=== PATIENT | male | born 1950 | race Caucasian/White ===

== ENCOUNTER 2022-10-02 09:46 | Day surgery (SDC) | payer MEDICARE ==
[2022-10-02] MEDS ORDERED: LIDOCAINE HCL 2% 100 MG/5 ML IJ ONE (09:47)
[2022-10-02] MEDS ORDERED: DIPRIVAN 200 MG/20 ML IV ONE (11:38)
--- NOTE | 2022-10-02 13:43 | XRAY ---
Indication: Bilateral L4-S1 MBB. Intraoperative fluoroscopy provided for 12 seconds. Single digital spot image submitted for interpretation demonstrates posterior needle tips projecting over the expected left and right L4-S1 nerve roots. Correlate with intraoperative findings/report.
[2022-10-02] MEDS ORDERED: Lactated Ringers 1,000 ML IV ONE (14:24)
--- NOTE | 2022-10-02 14:46 | XRAY ---
12 seconds of fluoroscopy was used in surgery for a bilateral L4-S1 MBB.
== END 2022-10-02 12:10 | disposition home or self-care (01) ==
LOC: SDC-PAIN 09:46
PROVIDERS: ATTEND Psychiatry & Neurology Pain Medicine
DX: M47.816 Spondylosis without myelopathy or radiculopathy, lumbar region (principal); I48.91 Unspecified atrial fibrillation; Z79.899 Other long term (current) drug therapy
CPT/HCPCS: 64493; 64494; 72020; 77002; J2704

== ENCOUNTER 2022-11-06 13:25 | Day surgery (SDC) | payer MEDICARE ==
[2022-11-06] MEDS ORDERED: BUPIVACAINE 0.5% VIAL IJ ONE (13:26)
[2022-11-06] MEDS ORDERED: DIPRIVAN 200 MG/20 ML IV ONE (15:23)
[2022-11-06] MEDS ORDERED: Lactated Ringers 1,000 ML IV ONE (15:40)
--- NOTE | 2022-11-06 17:07 | XRAY ---
Indication: Bilateral L4-S1 MBB. Intraoperative fluoroscopy provided for 9 seconds. Single digital spot image submitted for interpretation demonstrates posterior needle tips projecting over the expected left and right L4-S1 nerve roots. Correlate with intraoperative findings/report.
--- NOTE | 2022-11-06 17:12 | XRAY ---
9 seconds of fluoroscopy was used in surgery for a bilateral L4-S1 MBB.
== END 2022-11-06 16:00 | disposition home or self-care (01) ==
LOC: SDC-PAIN 13:25
PROVIDERS: ATTEND Psychiatry & Neurology Pain Medicine
DX: M47.816 Spondylosis without myelopathy or radiculopathy, lumbar region (principal); Z79.899 Other long term (current) drug therapy
CPT/HCPCS: 64493; 64494; 72020; 77002; J2704

== ENCOUNTER 2022-12-18 11:42 | Day surgery (SDC) | payer MEDICARE ==
[2022-12-18] MEDS ORDERED: BUPIVACAINE 0.5% VIAL IJ ONE (11:43)
[2022-12-18] MEDS ORDERED: Depo-Medrol 40 MG/ML IM ONE (11:43)
[2022-12-18] MEDS ORDERED: LIDOCAINE HCL 1% 50 MG/5 ML VL PF IJ ONE (11:43)
[2022-12-18] MEDS ORDERED: DIPRIVAN 200 MG/20 ML IV ONE (13:03)
[2022-12-18] MEDS ORDERED: Ephedrine Sulfate 50 MG/ML ONE (13:15)
[2022-12-18] MEDS ORDERED: Lactated Ringers 1,000 ML IV ONE (15:06)
--- NOTE | 2022-12-18 19:14 | XRAY ---
Indication: Left L4-S1 RFA. Intraoperative fluoroscopy provided for 18 seconds. 4 digital spot image submitted for interpretation demonstrates posterior needle tips projecting over the expected left L4-S1 nerve roots. Correlate with intraoperative findings/report.
--- NOTE | 2022-12-18 19:25 | XRAY ---
18 seconds of fluoroscopy was used in surgery for a left L4-S1 RFA.
== END 2022-12-18 13:40 | disposition home or self-care (01) ==
LOC: SDC-PAIN 11:42
PROVIDERS: ATTEND Psychiatry & Neurology Pain Medicine
DX: M47.816 Spondylosis without myelopathy or radiculopathy, lumbar region (principal); Z79.899 Other long term (current) drug therapy
CPT/HCPCS: 64635; 64636; 72100; 77002; 99100; J1030; J2001; J2704

== ENCOUNTER 2023-01-01 11:44 | Day surgery (SDC) | payer MEDICARE ==
[2023-01-01] MEDS ORDERED: BUPIVACAINE 0.5% VIAL IJ ONE (11:45)
[2023-01-01] MEDS ORDERED: Depo-Medrol 40 MG/ML IM ONE (11:45)
[2023-01-01] MEDS ORDERED: LIDOCAINE HCL 1% 50 MG/5 ML VL PF IJ ONE (11:45)
[2023-01-01] MEDS ORDERED: Lactated Ringers 1,000 ML IV ONE (14:44)
--- NOTE | 2023-01-01 16:37 | XRAY ---
Indication: Right L4-S1 RFA. Intraoperative fluoroscopy provided for 17 seconds. 5 digital spot images submitted for interpretation demonstrates posterior needle tips projecting over the expected right L4-S1 nerve roots. Correlate with intraoperative findings/report.
--- NOTE | 2023-01-02 09:02 | XRAY ---
17 seconds of fluoroscopy was used in surgery for a right L4-S1 RFA.
== END 2023-01-01 14:15 | disposition home or self-care (01) ==
LOC: SDC-PAIN 11:44
PROVIDERS: ATTEND Psychiatry & Neurology Pain Medicine
DX: M47.816 Spondylosis without myelopathy or radiculopathy, lumbar region (principal); Z79.899 Other long term (current) drug therapy
CPT/HCPCS: 64635; 64636; 72100; 77002; J1030; J2001

== ENCOUNTER 2023-01-23 17:38 | Emergency (ER) | payer MEDICARE ==
--- NOTE | 2023-01-23 17:56 | ERPHSYRPT ---
- History of Present Illness Time Seen by Provider: 01/23/23 17:54 Source: patient Exam Limitations: no limitations Patient Subjective Stated Complaint: Pt states "I am always in pain. I was doing a follow up with pain management and my blood pressure was low." Triage Nursing Assessment: Pt presented alert and oriented X 3, skin pwd. Pt able to speak in clear full sentences. Pt slightly short of breath, pt resting comfortably on the bed. Physician History: This 72-year-old white male patient who has a pacemaker/defibrillator in place and sees Dr. Bullock as his roof designer out of [facility] in [facility]. Patient was at his pain clinic appointment and his initial systolic blood pressure reading was in the high 70s. He also was short of breath. He states his shortness of breath is chronic. He states he has been having insomnia and not sleeping well. He has chronic back pain issues and that is why he was seeing the pain pharmacy clinical specialist. Patient was sent to our emergency department from the hospital pain clinic and he had a systolic blood pressure of 96 upon arrival to the emergency department. Patient has a history of hypertension, CHF, COPD, chronic low back pain, cardiac ablation and stroke. Patient is on Xarelto. Timing/Duration: today Severity: mild (To moderate) Associated Symptoms: shortness of breath (Chronic), No chest pain Allergies/Adverse Reactions: bee venom protein (honey bee) Allergy (Severe, Verified 01/23/23 17:50) anaphylaxis Home Medications: Albuterol Sulfate [Albuterol Sulfate Hfa] 8.5 gm IH DAILY 01/23/23 [History] Carvedilol 3.125 mg [Coreg 3.125 MG] 3.125 mg PO BID 01/23/23 [History] Dapagliflozin Propanediol [Farxiga] 10 mg PO DAILY 01/23/23 [History] Furosemide [Lasix] 20 mg PO BID 01/23/23 [History] Gabapentin 800 mg PO TID 01/23/23 [History] Rivaroxaban [Xarelto] 01/23/23 [History] Sacubitril/Valsartan [Entresto 49 mg-51 mg Tablet] 01/23/23 [History] Tramadol HCl 50 mg [Ultram 50 mg] 50 mg PO DAILY 01/23/23 [History] Hx Tetanus, Diphtheria Vaccination/Date Given: No Hx Influenza Vaccination/Date Given: Yes Hx Pneumococcal Vaccination/Date Given: No Immunizations Up to Date: Yes Travel Risk - International Travel Have you traveled outside of the country in past 3 weeks: No - Coronavirus Screening Are you exhibiting any of the following symptoms?: No - Vaccine Status Have you recieved a Covid-19 vaccination: Yes Coordinator Cardiopulmonary Services: Moderna - Vaccination Dates Date of 2cond Vaccination (if applicable): 2020 - Review of Systems Constitutional: No Symptoms, Weakness Eyes: No Symptoms Ears, Nose, & Throat: No Symptoms Respiratory: Dyspnea on Exertion (GARZA) Cardiac: No Symptoms (Chronic per his report) Abdominal/Gastrointestinal: No Symptoms Genitourinary Symptoms: No Symptoms Musculoskeletal: No Symptoms Skin: No Symptoms Neurological: No Symptoms Psychological: No Symptoms Endocrine: No Symptoms Hematologic/Lymphatic: No Symptoms Immunological/Allergic: No Symptoms All Other Systems: Reviewed and Negative - Past Medical History Pertinent Past Medical History: Yes Neurological History: No Pertinent History, Stroke ENT History: No Pertinent History Cardiac History: Congenital Heart Disease, Congestive Heart Failure Respiratory History: COPD Endocrine Medical History: No Pertinent History Musculoskeletal History: Arthritis, Other GI Medical History: No Pertinent History History: No Pertinent History Psycho-Social History: No Pertinent History Male Reproductive Disorders: No Pertinent History Other Medical History: chronic pain - Past Surgical History Past Surgical History: Yes Cardiac: Internal Defibrillator, Pacemaker Other Surgical History: heart cath. ablasion. orthopedic arm - Social History Smoking Status: Former smoker Exposure to second hand smoke: No Drug Use: none Patient Lives Alone: Yes - Nursing Vital Signs Nursing Vital Signs: Initial Vital Signs Temperature 97.1 F 01/23/23 17:39 Pulse Rate 114 H 01/23/23 17:39 Respiratory Rate 20 01/23/23 17:39 Blood Pressure 96/60 01/23/23 17:39 O2 Sat by Pulse Oximetry 93 L 01/23/23 17:39 Pain Scale Pain Intensity 0 - Physical Exam General Appearance: no apparent distress, alert, other (Appears weak and tired) Eye Exam: PERRL/EOMI, eyes nml inspection Ears, Nose, Throat Exam: normal ENT inspection, moist mucous membranes Neck Exam: normal inspection, non-tender, supple, full range of motion Respiratory Exam: normal breath sounds, lungs clear, airway intact, No chest tenderness, No respiratory distress Cardiovascular Exam: tachycardia Gastrointestinal/Abdomen Exam: soft, normal bowel sounds, No tenderness Rectal Exam: not done Back Exam: normal inspection, normal range of motion, CVA tenderness Extremity Exam: normal inspection, normal range of motion, pelvis stable Neurologic Exam: alert, oriented x 3, cooperative, administrative asst II-XII nml as tested Skin Exam: normal color, warm, dry Lymphatic Exam: No adenopathy SpO2 Interpretation: borderline oxygenation SpO2: 93 O2 Delivery: Room Air - Course Nursing assessment & vital signs reviewed: Yes EKG Interpreted by Me: RATE (85), Other (Reticular paced rhythm. Biventricular paced rhythm. No evidence of any acute ischemic changes on today's twelve-lead EKG.) Ordered Tests: Active Orders 24 hr Category Date Time Status EKG-ER Only STAT Care 01/23/23 18:22 Active IV Insertion STAT Care 01/23/23 18:22 Active Pulse Oximetry (ED) STAT Care 01/23/23 18:22 Active CBC W DIFF Stat Lab 01/23/23 18:34 Completed CMP Stat Lab 01/23/23 18:34 Completed MAGNESIUM Stat Lab 01/23/23 18:34 Completed NT PRO BNPII Stat Lab 01/23/23 18:34 Completed TROPONIN Q4H Lab 01/23/23 18:34 Completed TROPONIN Q4H Lab 01/23/23 21:35 Completed TROPONIN Q4H Lab 01/24/23 02:30 Ordered UA W/RFX UR CULTURE Stat Lab 01/23/23 19:56 Completed Medication Summary Generic Name Dose Route Start Last Admin Trade Name Freq PRN Reason Stop Dose Admin Sodium Chloride 1,000 mls @ 100 mls/hr 01/23/23 18:30 01/23/23 18:35 Sodium Chloride 0.9% 1000 Ml IV 02/22/23 18:29 100 mls/hr .Q10H OMID Administration Lab/Rad Data: Laboratory Result Diagrams 01/23/23 18:34 01/23/23 18:34 Laboratory Results 01/23/23 01/23/23 01/23/23 Range/Units 21:35 19:56 18:34 WBC (4.0-10.5) x10^3/uL RBC (4.1-5.6) x10^6/uL Hgb (12.5-18.0) g/dL Hct (42-50) % MCV (78-100) fL MCH (26-32) pg MCHC (32-36) g/dL RDW (11.5-14.0) % Plt Count (150-450) x10^3/uL MPV (7.5-11.0) fL Gran % (36.0-66.0) % Immature Gran % (Auto) (0.00-0.4) % Nucleat RBC Rel Count (0.00-0.1) % Eos # (Auto) (0-0.5) x10^3/uL Immature Gran # (Auto) (0.00-0.03) x10^3u/L Absolute Lymphs (auto) (1.0-4.6) x10^3/uL Absolute Monos (auto) (0.0-1.3) x10^3/uL Absolute Nucleated RBC (0.00-0.01) x10^3u/L Lymphocytes % (24.0-44.0) % Monocytes % (0.0-12.0) % Eosinophils % (0.00-5.0) % Basophils % (0.0-0.4) % Absolute Granulocytes (1.4-6.9) x10^3/uL Basophils # (0-0.4) x10^3/uL Sodium (137-145) mmol/L Potassium (3.5-5.1) mmol/L Chloride (98-107) mmol/L Carbon Dioxide (22-30) mmol/L Anion Gap (5-15) MEQ/L BUN (9-20) mg/dL Creatinine (0.66-1.25) mg/dL Estimated GFR ML/MIN Glucose (74-106) mg/dL Calcium (8.4-10.2) mg/dL Magnesium (1.6-2.3) mg/dL Total Bilirubin (0.2-1.3) mg/dL AST (17-59) U/L ALT (0-50) U/L Alkaline Phosphatase (38-126) U/L Troponin I < 0.012 < 0.012 (0.000-0.034) ng/mL NT-Pro-B Natriuret Pep (<300) pg/mL Serum Total Protein (6.3-8.2) g/dL Albumin (3.5-5.0) g/dL Urine Color Yellow (Yellow) Urine Appearance Cloudy A (Clear) Urine pH 7.5 (4.6-8.0) Ur Specific [place] 1.010 (1.005-1.030) Urine Protein Negative (Negative) Urine Glucose (UA) >=1000 A (Negative) mg/dL Urine Ketones Negative (Negative) Urine Blood Negative (Negative) Urine Nitrite Negative (Negative) Urine Bilirubin Negative (Negative) Urine Urobilinogen 2.0 A (0.2) mg/dL Ur Leukocyte Esterase Negative (Negative) U Hyaline Cast (Auto) NONE SEEN (0-2) /LPF Urine Microscopic RBC 0-2 (0-5) /HPF Urine Microscopic WBC 0-2 (0-5) /HPF Ur Epithelial Cells None Seen (None Seen) /HPF Urine Bacteria None Seen (None Seen) /HPF Urine Culture Reflexed NO (NO) 01/23/23 01/23/23 Range/Units 18:34 18:34 WBC 7.1 (4.0-10.5) x10^3/uL RBC 3.39 L (4.1-5.6) x10^6/uL Hgb 11.4 L (12.5-18.0) g/dL Hct 34.6 L (42-50) % MCV 102.1 H (78-100) fL MCH 33.6 H (26-32) pg MCHC 32.9 (32-36) g/dL RDW 13.1 (11.5-14.0) % Plt Count 173 (150-450) x10^3/uL MPV 9.1 (7.5-11.0) fL Gran % 75.5 H (36.0-66.0) % Immature Gran % (Auto) 0.4 (0.00-0.4) % Nucleat RBC Rel Count 0.0 (0.00-0.1) % Eos # (Auto) 0.07 (0-0.5) x10^3/uL Immature Gran # (Auto) 0.03 (0.00-0.03) x10^3u/L Absolute Lymphs (auto) 0.80 L (1.0-4.6) x10^3/uL Absolute Monos (auto) 0.79 (0.0-1.3) x10^3/uL Absolute Nucleated RBC 0.00 (0.00-0.01) x10^3u/L Lymphocytes % 11.3 L (24.0-44.0) % Monocytes % 11.2 (0.0-12.0) % Eosinophils % 1.0 (0.00-5.0) % Basophils % 0.6 (0.0-0.4) % Absolute Granulocytes 5.35 (1.4-6.9) x10^3/uL Basophils # 0.04 (0-0.4) x10^3/uL Sodium 133 L (137-145) mmol/L Potassium 4.3 (3.5-5.1) mmol/L Chloride 96 L (98-107) mmol/L Carbon Dioxide 27 (22-30) mmol/L Anion Gap 15.1 H (5-15) MEQ/L BUN 25 H (9-20) mg/dL Creatinine 1.88 H (0.66-1.25) mg/dL Estimated GFR 37.8 ML/MIN Glucose 116 H (74-106) mg/dL Calcium 8.7 (8.4-10.2) mg/dL Magnesium 2.1 (1.6-2.3) mg/dL Total Bilirubin 1.00 (0.2-1.3) mg/dL AST 29 (17-59) U/L ALT 17 (0-50) U/L Alkaline Phosphatase 81 (38-126) U/L Troponin I (0.000-0.034) ng/mL NT-Pro-B Natriuret Pep 910 (<300) pg/mL Serum Total Protein 7.5 (6.3-8.2) g/dL Albumin 4.1 (3.5-5.0) g/dL Urine Color (Yellow) Urine Appearance (Clear) Urine pH (4.6-8.0) Ur Specific [place] (1.005-1.030) Urine Protein (Negative) Urine Glucose (UA) (Negative) mg/dL Urine Ketones (Negative) Urine Blood (Negative) Urine Nitrite (Negative) Urine Bilirubin (Negative) Urine Urobilinogen (0.2) mg/dL Ur Leukocyte Esterase (Negative) U Hyaline Cast (Auto) (0-2) /LPF Urine Microscopic RBC (0-5) /HPF Urine Microscopic WBC (0-5) /HPF Ur Epithelial Cells (None Seen) /HPF Urine Bacteria (None Seen) /HPF Urine Culture Reflexed (NO) - Progress Progress: improved, re-examined Progress Note: 01/23/23 20:55 I have reexamined the patient twice since he was first evaluated upon admission into the emergency department. Patient states he is feeling much better. He is tolerating fluids to drink. His systolic blood pressure is now 130 and his heart rate is in the 80s and his room air oxygenation is 99 to 100%. This patient's work-up is 1 of moderate complexity. The level complexity and the work-up performed is based on review of the patient's past medical history, review of the patient's medication list, review of the patient's drug allergy list, history of present illness and findings on physical examination. The work-up in this patient includes placement of intravenous line, twelve-lead EKG, CBC, CMP, troponin level, and urinalysis. Clinically, the patient has improved. I reviewed the work-up results. I do not see any acute, emergent findings at this point in his care/stay in the emergency department. With a small fluid bolus his systolic blood pressure is 130. He has no chest pain. He has no shortness of breath. Patient does state that he has not been eating or drinking well recently. 01/23/23 21:37 Repeat 12-lead EKG approximately 3 hours after his first twelve-lead EKG and there are no acute changes. The repeat twelve-lead EKG shows a heart rate of 76 bpm. It is still ventricular paced rhythm/biventricular paced rhythm without evidence of any acute ischemic changes. Again, patient has no shortness of breath. He has no chest pain. His systolic blood pressures been in the 120s to 130s and his heart rate is in the 70s to 80s. Patient states he is feeling much better and he wants to go home. I am waiting for the 3-hour troponin level. If this repeat troponin level is negative, I feel it is reasonable for him to be discharged to home. Counseled pt/family regarding: lab results, diagnosis, need for follow-up - Departure Departure Disposition: Home Clinical Impression: Hypotension, Weakness Condition: Stable Critical Care Time: No Referrals: CELSA CHANG [Primary Care Provider] - Follow up/PCP as directed Additional Instructions: Drink plenty of fluids. Take your medication as prescribed. Follow-up with your roof designer and primary care provider on 01/25/2020 3 in the morning to make a follow-up appointment in the next 3 days.
[2023-01-23] MEDS ORDERED: Sodium Chloride 0.9% 1000 ML 1,000 ML IV SCH (18:30)
[2023-01-23] MEDS ORDERED: Sodium Chloride 0.9% 1000 ML 1,000 ML ONE (18:33)
[2023-01-23 18:37] LABS: Absolute Neutrophil Ct (ANC) 5.35 x10^3/uL (1.4-6.9); BASOPHIL % 0.6 % (0.0-0.4); Basophil (Absolute #) 0.04 x10^3/uL (0-0.4); Eosinophil (Absolute #) 0.07 x10^3/uL (0-0.5); Hematocrit 34.6 % (42-50); Hemoglobin 11.4 g/dL (12.5-18.0); IMMATURE GRAN # 0.03 x10^3u/L (0.00-0.03); IMMATURE GRAN % 0.4 % (0.00-0.4); Lymphocytes % 11.3 % (24.0-44.0); Mean Cell Volume 102.1 fL (78-100); Mean Corpuscular Hemoglobin 33.6 pg (26-32); Mean Corpuscular Hgb Concent. 32.9 g/dL (32-36); Mean Platelet Volume 9.1 fL (7.5-11.0); Monocyte (Absolute #) 0.79 x10^3/uL (0.0-1.3); Monocytes % 11.2 % (0.0-12.0); Neutrophil % 75.5 % (36.0-66.0); Platelet Count 173 x10^3/uL (150-450); Red Blood Count 3.39 x10^6/uL (4.1-5.6); Red Cell Distribution Width 13.1 % (11.5-14.0); White Blood Count 7.1 x10^3/uL (4.0-10.5)
[2023-01-23 18:59] LABS: ALBUMIN 4.1 g/dL (3.5-5.0); ANION GAP 15.1 MEQ/L (5-15); Calcium 8.7 mg/dL (8.4-10.2); Creatinine 1 1.88 mg/dL (0.66-1.25); EST GLOMERULAR FILTRATION RATE 37.8 ML/MIN; MAGNESIUM 2.1 mg/dL (1.6-2.3); Potassium 4.3 mmol/L (3.5-5.1); Total Protein 7.5 g/dL (6.3-8.2)
[2023-01-23 20:13] LABS: Appearance Cloudy (Clear); Bacteria None Seen /HPF (None Seen); Bilirubin Negative (Negative); Blood Negative (Negative); Epithelial Cells None Seen /HPF (None Seen); Glucose, Urine >=1000 mg/dL (Negative); Hyaline Casts NONE SEEN /LPF (0-2); Ketones Negative (Negative); Leukocyte Esterase Negative (Negative); Nitrite Negative (Negative); Ph 7.5 (4.6-8.0); Protein,Urine Dip Negative (Negative); RBC 0-2 /HPF (0-5); WBC 0-2 /HPF (0-5)
[2023-01-23 20:16] LABS: ADD URINE CULTURE? NO (NO)
[2023-01-23 20:57] VITALS: O2SAT 93
[2023-01-23 21:40] VITALS: BP 128/70; PULSE 77
== END 2023-01-23 22:23 | disposition home or self-care (01) ==
LOC: ED 17:38
DX: I95.9 Hypotension, unspecified (principal); R53.1 Weakness; I11.0 Hypertensive heart disease with heart failure; I50.9 Heart failure, unspecified; Z79.84 Long term (current) use of oral hypoglycemic drugs; Z79.01 Long term (current) use of anticoagulants; Z79.891 Long term (current) use of opiate analgesic; Z79.899 Other long term (current) drug therapy
CPT/HCPCS: 36415; 80053; 81001; 83735; 83880; 84484; 85025; 93005; 94760; 99284